=== PATIENT | female | born 1970 | race Caucasian/White ===

== ENCOUNTER → 2022-01-03 10:10 | Outpatient (CLI) | payer OTHER, SELFPAY ==
--- NOTE | 2022-01-03 10:14 | CT_ITS ---
FINAL REPORT TECHNIQUE: Thin section axial CT images with coronal and sagittal reformats were performed through the neck. This study was performed with techniques to keep radiation doses as low as reasonably achievable (ALARA). Individualized dose reduction techniques using automated exposure control or adjustment of mA and/or kV according to the patient's size were employed. CLINICAL HISTORY: LESION ON NECK, noticed 2 weeks ago, marked with BB FINDINGS: The nasopharynx, oropharynx, hypopharynx and larynx are unremarkable. A marker was placed on the right anterior lower neck. At the marker site there is a 2.7 x 2.5 cm right thyroid lobe mass. There is moderate mucosal thickening of the maxillary sinuses, ethmoid air cells, in the sphenoid sinuses which is consistent with sinusitis. There are mild degenerative changes in the cervical spine. IMPRESSION: At the marker site, there is a 2.7 x 2.5 cm right thyroid mass. Recommend thyroid ultrasound for further evaluation with a possible ultrasound guided biopsy. Reviewed, Interpreted and Dictated by Charles Raymond III, MD Transcribed by Carmen Cabrera Authenticated by Charles Raymond III, MD on 01/03/2022 11:17:22 AM [facility]
--- NOTE | 2022-01-03 10:21 | US_ITS ---
FINAL REPORT CLINICAL HISTORY: RIGHT INGUINAL FINDINGS: Sonographic images were obtained of the right inguinal area. In the area of interest are several enlarged inguinal lymph nodes measuring up to 2.6 cm. They have an appearance consistent with reactive lymph nodes. No other mass or fluid collection is identified. IMPRESSION: Several enlarged right inguinal lymph nodes with appearance consistent with reactive lymph nodes. Reviewed, Interpreted and Dictated by Charles Raymond III, MD Transcribed by Carmen Cabrera Authenticated by Charles Raymond III, MD on 01/03/2022 01:47:26 PM [facility]
== END ==
PROVIDERS: PCP Family Medicine; Visit Provider Family Medicine
DX: R10.31 Right lower quadrant pain (principal); L98.9 Disorder of the skin and subcutaneous tissue, unspecified
CPT/HCPCS: 70490; 76882

== ENCOUNTER → 2022-01-15 08:16 | Outpatient (CLI) | payer OTHER, SELFPAY ==
--- NOTE | 2022-01-15 08:22 | US_ITS ---
FINAL REPORT CLINICAL HISTORY: THYROID MASS FINDINGS: Sonographic images of the thyroid were obtained. The right lobe of the thyroid measures 2.3 x 4.3 x 2.5 cm. The left lobe of the thyroid measures 2.4 x 4.1 x 1.3 cm. The isthmus is normal. There is a dominant mass/nodule in the right lobe of the thyroid measuring 2.9 x 2.4 x 2.2 cm which is predominantly solid and hyperechoic consistent with TI-RADS Category 3. IMPRESSION: Right thyroid lobe nodule as detailed above. Recommend ultrasound-guided biopsy. Reviewed, Interpreted and Dictated by Charles Raymond III, MD Transcribed by Sofia Olsen Authenticated by Charles Raymond III, MD on 01/15/2022 11:51:36 AM [facility]
--- NOTE | 2022-01-15 08:22 | US_ITS ---
FINAL REPORT CLINICAL HISTORY: THYROID MASS FINDINGS: ULTRASOUND GUIDED RIGHT THYROID NODULE BIOPSY HISTORY: Right thyroid nodule. ATTENDING PHYSICIAN: Dr. Raymond PHYSICIAN CHAIR INSTALLER: Rebecca Dyson PA-C TECHNIQUE: Informed consent was obtained from the patient. A timeout procedure was performed. Limited sonographic evaluation of thyroid gland was performed to localize lesion of interest. The neck was prepped in a routine sterile fashion and locally anesthetized with 1% lidocaine. FNA was performed with 25-gauge needle under direct sonographic visualization. 3 passes were made. Cytology is pending. Procedure was well tolerated. CONCLUSION: 1. Technically successful thyroid fine needle aspiration of right thyroid nodule. Reviewed, Interpreted and Dictated by Charles Raymond III, MD Transcribed by Rebecca Dyson PA-C Authenticated by Charles Raymond III, MD on 01/15/2022 12:37:39 PM [facility]
--- NOTE | 2022-01-15 09:24 | US_ITS ---
FINAL REPORT CLINICAL HISTORY: INQUINAL LYMPHASENOPATHY; rt sided groin pain FINDINGS: Transvaginal sonographic images of the pelvis were obtained. The uterus measures 8.9 x 4.3 x 4.2 cm. The endometrium is thickened as a nonspecific finding measuring 19 mm. No uterine mass is identified. The right ovary measures 3 cm in length and left ovary measures 2.4 cm in length. Normal blood flow seen to the ovaries. Small follicles are present. There is no evidence of free fluid. IMPRESSION: Thickened endometrium as a nonspecific finding. Reviewed, Interpreted and Dictated by Charles Raymond III, MD Transcribed by Carmen Cabrera Authenticated by Charles Raymond III, MD on 01/15/2022 12:25:54 PM [facility]
--- NOTE | 2022-01-15 10:38 | XR_ITS ---
FINAL REPORT CLINICAL HISTORY: WHEEZING FINDINGS: Two views of the chest were obtained. The heart size and pulmonary vascularity are within normal limits. The mediastinum is normal. There is mild bronchial wall thickening that may represent bronchitis. There is no pneumothorax. The bony thorax is intact. IMPRESSION: Mild bronchial wall thickening that may represent bronchitis. Reviewed, Interpreted and Dictated by Charles Raymond III, MD Transcribed by Kayleigh Cyr Authenticated by Charles Raymond III, MD on 01/15/2022 11:27:47 AM [facility]
== END ==
PROVIDERS: PCP Family Medicine; Visit Provider Family Medicine
DX: E07.9 Disorder of thyroid, unspecified (principal); R59.0 Localized enlarged lymph nodes
CPT/HCPCS: 10005; 71046; 76536; 76830

== ENCOUNTER → 2022-03-04 10:46 | Outpatient (CLI) | payer OTHER, SELFPAY ==
[2022-03-05 09:54] LABS: FSH 99.8 mIU/mL (.); LH 41.2 mIU/mL (.)
== END ==
PROVIDERS: Visit Provider Nurse Practitioner Obstetrics & Gynecology
DX: N95.1 Menopausal and female climacteric states (principal); R53.82 Chronic fatigue, unspecified
CPT/HCPCS: 36415; 83001; 83002

== ENCOUNTER → 2022-03-25 12:57 | Outpatient (CLI) | payer OTHER, SELFPAY ==
--- NOTE | 2022-03-25 13:01 | US_ITS ---
FINAL REPORT CLINICAL HISTORY: enlarged lymph nodes FINDINGS: US EXTREMITY, NONVASCULAR, LIMITED, ANATOMIC SPECIFIC Limited sonographic images were obtained of the left inguinal region. There are several enlarged lymph nodes measuring up to 2.2 cm which have an appearance consistent with reactive nodes. IMPRESSION: Several enlarged lymph nodes consistent with reactive nodes. Reviewed, Interpreted and Dictated by Charles Raymond III, MD Transcribed by Niki Aden Authenticated and [facility]
--- NOTE | 2022-03-25 13:01 | US_ITS ---
FINAL REPORT CLINICAL HISTORY: enlarged lymph nodes FINDINGS: US EXTREMITY, NONVASCULAR, LIMITED, ANATOMIC SPECIFIC Limited sonographic images were obtained of the right inguinal region. There are several enlarged lymph nodes measuring up to 2.5 cm which have an appearance consistent with reactive nodes. IMPRESSION: Several enlarged lymph nodes consistent with reactive nodes. Reviewed, Interpreted and Dictated by Charles Raymond III, MD Transcribed by Niki Aden Authenticated and [facility]
--- NOTE | 2022-03-25 13:01 | US_ITS ---
FINAL REPORT CLINICAL HISTORY: check the lining of the uterus FINDINGS: Transvaginal sonographic images of the pelvis were obtained. The uterus measures 7.8 x 4.7 x 4.6 cm. The endometrium measures 1.1 cm, at the upper limits of normal. No uterine mass is identified. The right ovary is not seen. The left ovary measures 2.2 cm in length and is normal. Normal blood flow seen to the ovaries. Small follicles are present. There is no evidence of free fluid. IMPRESSION: Endometrium at the upper limits of normal. Reviewed, Interpreted and Dictated by Charles Raymond III, MD Transcribed by Niki Aden Authenticated and . [facility]
== END ==
PROVIDERS: PCP Family Medicine; Visit Provider Nurse Practitioner Obstetrics & Gynecology
DX: R93.89 Abnormal findings on diagnostic imaging of other specified body structures (principal); R59.9 Enlarged lymph nodes, unspecified
CPT/HCPCS: 76830; 76882

== ENCOUNTER → 2022-05-27 06:22 | Outpatient (CLI) | payer OTHER, SELFPAY ==
[2022-05-27 18:41] LABS: MANUAL DIFFERENTIAL MANUAL DIFFERENTIAL (MANUAL DIFF)
[2022-05-27 18:49] LABS: Basophils # 0.1 K/mm3 (0-0.2); Basophils % 0.9 % (0.1-2.0); Eosinophils # 0.7 K/mm3 (0.0-0.4); Eosinophils % 8.8 % (0.1-12.0); Hematocrit 40.8 % (37.0-47.0); Hemoglobin 12.5 g/dL (12.2-16.2); Lymphocytes # 1.8 K/mm3 (0.7-4.5); Lymphocytes % 24.2 % (10-50); Mean Corpuscular HGB Conc 30.7 g/dL (31.8-35.4); Mean Corpuscular Hemoglobin 28.7 pg (27.0-31.2); Mean Corpuscular Volume 93.7 fl (81-99); Mean Platelet Volume 8.6 fl (7.4-10.4); Monocytes # 0.4 K/mm3 (0.1-1.0); Monocytes % 5.5 % (1.7-9.3); Neutrophils # 4.5 K/mm3 (1.8-7.8); Neutrophils % 60.7 % (37.0-80.0); Platelet Count 361 K/mm3 (142-424); Red Blood Count 4.35 M/mm3 (4.20-5.40); Red Cell Distribution Width 14.1 % (11.5-17.5); White Blood Count 7.4 K/mm3 (4.8-10.8)
[2022-05-27 19:25] LABS: Eosinophils % 3 % (0-3); Hypochromasia 2+; Lymphocytes % 32 % (10-50); Monocytes % 4 % (2-9); Neutrophils % 61 % (42-76); Platelet Estimate Normal; Total Cells Counted 100
== END ==
PROVIDERS: PCP Family Medicine; Visit Provider Family Medicine
DX: L30.9 Dermatitis, unspecified (principal)
CPT/HCPCS: 85007; 85014; 85018; 85048; 85049

== ENCOUNTER → 2022-06-06 13:58 | Outpatient (CLI) | payer OTHER, SELFPAY | PROVIDERS: PCP Family Medicine; Visit Provider Family Medicine | DX: R59.0 Localized enlarged lymph nodes (principal) ==

== ENCOUNTER → 2022-06-10 14:02 | Outpatient (CLI) | payer OTHER, SELFPAY ==
[2022-06-10 18:34] LABS: Erythrocyte Sedimentation Rate 11 mm/hr (0-20)
[2022-06-13 23:47] LABS: RMSF, IgG, EIA Negative (Negative)
[2022-06-14 00:08] LABS: Rocky Mtn Spotted Fever, IgM 0.35 index (0.00-0.89)
[2022-06-15 15:09] LABS: Lyme B. burgdorferi PCR Blood Negative (Negative)
[2022-06-16 12:40] LABS: B. henselae IgG Negative titer (Neg:<1:320); B. henselae IgM Negative titer (Neg:<1:100); B. quintana IgG Negative titer (Neg:<1:320); B. quintana IgM Negative titer (Neg:<1:100)
== END ==
PROVIDERS: PCP Family Medicine; Visit Provider Family Medicine
DX: R59.0 Localized enlarged lymph nodes (principal)
CPT/HCPCS: 85651; 86609; 86611; 87476

== ENCOUNTER → 2022-09-16 16:30 | Outpatient (CLI) | payer OTHER, SELFPAY | PROVIDERS: PCP Family Medicine; Visit Provider Family Medicine | DX: Z01.419 Encounter for gynecological examination (general) (routine) without abnormal findings (principal) ==

== ENCOUNTER → 2022-10-09 10:24 | Outpatient (CLI) | payer OTHER, SELFPAY ==
--- NOTE | 2022-10-09 10:24 | MM_ITS ---
PROCEDURE INFORMATION: Exam: Bilateral Screening 3D Mammography Exam date and time: 10/09/2022 10:23 AM Age: 52 years old Clinical indication: Screening examination TECHNIQUE: Imaging protocol: Bilateral Screening tomosynthesis and 2D mammography including computer-aided detection (CAD) when performed. COMPARISON: SCN DIG BREAST TOMOSYN LUCIA 03/26/2021 12:15 PM FINDINGS: MAMMOGRAPHY: Breast composition: There are scattered areas of fibroglandular density. Mass: None. Architectural distortion: None. Calcifications: No suspicious calcifications. Asymmetric density: None. Skin thickening: None. Axillary adenopathy: None. IMPRESSION: No mammographic evidence of malignancy. Annual screening is recommended unless otherwise clinically indicated. ASSESSMENT: BI-RADS Category 1: Negative
== END ==
PROVIDERS: PCP Family Medicine; Visit Provider Family Medicine
DX: Z12.31 Encounter for screening mammogram for malignant neoplasm of breast (principal); N60.19 Diffuse cystic mastopathy of unspecified breast
CPT/HCPCS: 77063; 77067